=== PATIENT | male | born 1960 | race Caucasian/White ===

== ENCOUNTER → 2023-11-01 12:51 | Outpatient (REF) | payer BC, SELFPAY | LOC: HWRAD 12:51 | PROVIDERS: ATTENDING PHYSICIAN Family Medicine | DX: M25.511 Pain in right shoulder (principal) | CPT/HCPCS: 73030 ==

== ENCOUNTER → 2024-05-31 09:20 | Outpatient (REF) | payer BC, SELFPAY | LOC: HWRCS 09:20 | PROVIDERS: ATTENDING PHYSICIAN Internal Medicine Cardiovascular Disease; FAMILY PHYSICIAN Family Medicine | DX: I10 Essential (primary) hypertension (principal); R00.0 Tachycardia, unspecified; I95.89 Other hypotension | CPT/HCPCS: 93306 ==

== ENCOUNTER → 2024-06-13 06:46 | Outpatient (REF) | payer BC, SELFPAY | LOC: RAD 06:46 | PROVIDERS: ATTENDING PHYSICIAN Internal Medicine Cardiovascular Disease; FAMILY PHYSICIAN Family Medicine | DX: I77.810 Thoracic aortic ectasia (principal); I10 Essential (primary) hypertension | CPT/HCPCS: 71275; 76770; Q9967 ==

== ENCOUNTER → 2024-08-28 09:35 | Outpatient (REF) | payer BC, SELFPAY ==
[2024-08-28 12:47] LABS: ALT (SGPT) 25 U/L (0-50); AST (SGOT) 21 U/L (17-59); Albumin 4.6 g/dl (3.5-5.0); Alkaline Phosphatase 62 U/L (38-126); Direct Bilirubin 0.2 mg/dl (0.0-0.4); HDL Cholesterol 40 mg/dl; LDL Cholesterol, Calculated 91 mg/dl; Total Bilirubin 1.1 mg/dl (0.2-1.3); Total Cholesterol 158 mg/dl (50-199); Triglyceride 137 mg/dl (10-149); Very Low Density Lipoprotein 27 mg/dl (0-30)
== END ==
LOC: HWLAB 09:35
PROVIDERS: ATTENDING PHYSICIAN Internal Medicine Cardiovascular Disease; FAMILY PHYSICIAN Family Medicine
DX: I10 Essential (primary) hypertension (principal); R00.0 Tachycardia, unspecified; E78.00 Pure hypercholesterolemia, unspecified
CPT/HCPCS: 36415; 80061; 80076